=== PATIENT | female | born 1980 | race Caucasian/White ===

== ENCOUNTER 2016-10-24 12:23 | Emergency (ER) | payer OTHER ==
[2016-10-24 13:33] LABS: BASO % 0.2 % (0.1-1.2); EOS # 0.1 10_X3_uL (0.0-0.4); EOS % 0.6 % (0.7-5.8); GRAN % 77.4 % (34.0-71.1); HEMATOCRIT 43.3 % (34-45); HEMOGLOBIN 14.8 g/dL (11.2-15.7); LYMPH # 1.1 10_X3_uL (1.2-3.7); LYMPH % 12.5 % (19.3-51.7); MEAN CORPUSCULAR HEMOGLOBIN 32.7 pg (27.0-33.0); MEAN CORPUSCULAR HGB CONC 34.2 g/dL (32.0-36.0); MEAN CORPUSCULAR VOLUME 95.6 fL (79-95); MEAN PLATELET VOLUME 11.4 fl (7.5-11.5); MONO # 0.8 10_X3_uL (0.2-0.9); MONO % 9.3 % (4.7-12.5); PLATELET COUNT 191 x10_3/uL (182-369); RED BLOOD COUNT 4.53 x10_6/uL (3.9-5.2); RED CELL DISTRIBUTION WIDTH 12.2 % (11.7-14.4); WHITE BLOOD COUNT 9.1 x10_3/uL (4.0-10.0)
[2016-10-24 13:35] LABS: URINE BILIRUBIN NEGATIVE (NEGATIVE); URINE BLOOD TRACE (NEGATIVE); URINE GLUCOSE (UA) NORMAL (NORMAL); URINE KETONE NEGATIVE (NEGATIVE); URINE LEUKOCYTE ESTERASE NEGATIVE (NEGATIVE); URINE NITRATE NEGATIVE (NEGATIVE); URINE PROTEIN NEGATIVE (NEGATIVE); UROBILINOGEN NORMAL mg/dL (<1.0)
[2016-10-24 13:45] LABS: ALBUMIN 4.6 gm/dL (3.4-5.0); ALKALINE PHOSPHATASE 64 U/L (50-136); ALT/SGPT 12 U/L (3.5-33.9); AMYLASE 39 U/L (15.62-74.58); AST/SGOT 12 U/L (7.04-26.96); BILIRUBIN,TOTAL 0.16 mg/dL (0.0-1.0); BLOOD UREA NITROGEN 16 mg/dL (7-18); CALCIUM 9.2 mg/dL (8.7-10.7); CARBON DIOXIDE 30 mmol/L (21-32); CREATININE 0.6 mg/dL (0.6-1.3); GLUCOSE,RANDOM 115 mg/dL (70-99); LIPASE 30 U/L (6.75-60.75); POTASSIUM 4.4 mmol/L (3.5-5.1); SODIUM 140 mmol/L (136-145); TOTAL PROTEIN 7.3 gm/dL (6.4-8.2)
[2016-10-24 13:58] LABS: URINE BACTERIA TRACE (NONE SEEN); URINE SQUAMOUS EPITHELIAL CELL 0-10 /[HPF] (NONE SEEN)
[2016-10-24 13:59] LABS: URINE AMORPHOUS SEDIMENT 3+
== END 2016-10-24 16:44 | disposition home or self-care (01) ==
LOC: ER 12:23
PROVIDERS: Emergency Medicine
DX: R10.13 Epigastric pain (principal); R11.0 Nausea; Z90.49 Acquired absence of other specified parts of digestive tract; I51.9 Heart disease, unspecified; Z88.2 Allergy status to sulfonamides
CPT/HCPCS: 36415; 74150; 80053; 81001; 81025; 82150; 83690; 85025; 99070; 99284-25